=== PATIENT | female | born 1945 | race Caucasian/White ===

== ENCOUNTER → 2018-06-08 | Day surgery (SDC) | payer MEDICARE ==
[~2018-06-08] MED LIST: CETI10TA22 PO; ESTR0.3T PO; FURO40TA4 PO; IV RINGERS,LACTATED 1000ML 1,000 ML IV SCH; LIDOCAINE 1% PF 2 ML VIAL. ID PRN; MIDAZOLAM HCL/PF 2 MG/2 ML VIAL. IV PRN; OMEP40CA5 PO; POLY17PO29 PO; POLY255P11 PO; POTA20TA12 PO; PRAV40TA2 PO; PROPOFOL 40 ML IV ONE; VERA240C2 PO; fentaNYL PF VIAL 100 MCG/2 ML VIAL IV PRN
--- NOTE | 2018-06-08 11:30 | PREOP HP ---
DATE OF SERVICE: 06/08/2018 REQUESTING PHYSICIAN: Dr. Graeme Jones. REASON FOR PROCEDURE: Gorman esophagus. 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 ALLERGIES: IODINE CONTRAST. MEDICATIONS: Reviewed on the AUG. PAST MEDICAL HISTORY: 1. Breast cancer. 2. Gorman esophagus. 3. Diverticulitis. 4. Colon polyps. FAMILY MEDICAL HISTORY: Significant for stroke, diabetes, [place] and hypertension. SOCIAL HISTORY: She denies drug use or tobacco use. PAST SURGICAL HISTORY: 1. Lumpectomy. 2. Tubal ligation. 3. Cataract surgery. 4. Hysterectomy. 5. Pacemaker. REVIEW OF SYSTEMS: A 13-point review of systems was done and is positive as per HPI and otherwise negative. PHYSICAL EXAMINATION: VITAL SIGNS: She is afebrile and vital signs are stable. GENERAL: Well-developed, well-nourished female, in no apparent distress. HEENT: Oropharynx is clear. CARDIOVASCULAR: S1, S2. LUNGS: Clear. ABDOMEN: Normoactive bowel sounds, soft, nontender, nondistended. EXTREMITIES: No edema. NEUROLOGIC: Awake, alert and oriented x 3. ASSESSMENT AND PLAN: Gorman esophagus, is to undergo upper endoscopy for further evaluation. The risks and benefits including bleeding, perforation, non-diagnosis and sedation were explained and she has agreed to proceed. Thank you for allowing me to participate in the care of this patient. MIGUEL MCLEOD MD DR: ANDIE/nts JOB#: [id number] / [id number]
[2018-06-08 11:45] VITALS: BP 128/58
== END | disposition home or self-care (01) ==
LOC: SURG 09:54
PROVIDERS: ATTEND Internal Medicine Gastroenterology
DX: K21.0 Gastro-esophageal reflux disease with esophagitis (principal); K31.89 Other diseases of stomach and duodenum; K22.70 Barrett's esophagus without dysplasia; Z91.041 Radiographic dye allergy status; Z85.3 Personal history of malignant neoplasm of breast; Z86.010 Personal history of colon polyps; Z82.3 Family history of stroke; Z83.3 Family history of diabetes mellitus; Z82.49 Family history of ischemic heart disease and other diseases of the circulatory system; Z98.51 Tubal ligation status; Z90.710 Acquired absence of both cervix and uterus; Z95.0 Presence of cardiac pacemaker; Z98.890 Other specified postprocedural states; Z98.42 Cataract extraction status, left eye; Z98.41 Cataract extraction status, right eye; Z96.1 Presence of intraocular lens
CPT/HCPCS: 43239; 88305; 88342; J2704

== ENCOUNTER → 2018-11-30 | Day surgery (SDC) | payer MEDICARE ==
[~2018-11-30] MED LIST changes: +IV RINGERS,LACTATED 1000ML 1,000 ML IV ONE; -IV RINGERS,LACTATED 1000ML 1,000 ML IV SCH; -LIDOCAINE 1% PF 2 ML VIAL. ID PRN; +LIDOCAINE 2% PF 5 ML VIAL. ONE; +LINZESS145 MCG PO; -MIDAZOLAM HCL/PF 2 MG/2 ML VIAL. IV PRN; -fentaNYL PF VIAL 100 MCG/2 ML VIAL IV PRN
[2018-11-30 12:07] VITALS: BP 131/62
== END ==
LOC: ENDOS 09:28
PROVIDERS: ATTEND Internal Medicine Gastroenterology
DX: K57.30 Diverticulosis of large intestine without perforation or abscess without bleeding (principal); K64.0 First degree hemorrhoids; E78.00 Pure hypercholesterolemia, unspecified; K76.0 Fatty (change of) liver, not elsewhere classified; I10 Essential (primary) hypertension; K21.9 Gastro-esophageal reflux disease without esophagitis; E66.3 Overweight; J45.909 Unspecified asthma, uncomplicated; Z86.010 Personal history of colon polyps; Z85.3 Personal history of malignant neoplasm of breast; Z91.041 Radiographic dye allergy status; Z79.899 Other long term (current) drug therapy; Z98.51 Tubal ligation status; Z95.0 Presence of cardiac pacemaker; Z98.41 Cataract extraction status, right eye; Z98.42 Cataract extraction status, left eye; Z98.890 Other specified postprocedural states
CPT/HCPCS: 45378; J2001; J2704

== ENCOUNTER → 2021-04-15 | Outpatient (CLI) | payer MEDICARE ==
[2018-11-30 12:07] VITALS: BP 131/62
[~2021-04-15] MED LIST changes: -CETI10TA22 PO; +CETI10TA74 PO; -IV RINGERS,LACTATED 1000ML 1,000 ML IV ONE; -LIDOCAINE 2% PF 5 ML VIAL. ONE; -OMEP40CA5 PO; +OMEP40CA7 PO; -PROPOFOL 40 ML IV ONE
== END ==
LOC: LAB 10:42
PROVIDERS: ATTEND Internal Medicine Cardiovascular Disease
DX: E78.5 Hyperlipidemia, unspecified (principal)
CPT/HCPCS: 36415; 80061; 83721